=== PATIENT | female | born 2000 | race Two or more races ===

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

== ENCOUNTER 2019-06-17 19:10 | Emergency (ER) | payer OTHER, MEDICAID ==
[2019-06-17 23:02] VITALS: BP 108/63
== END 2019-06-17 23:02 | disposition home or self-care (01) ==
LOC: ED 19:10
DX: M25.551 Pain in right hip (principal); M79.651 Pain in right thigh; J45.909 Unspecified asthma, uncomplicated; G80.9 Cerebral palsy, unspecified; Z98.2 Presence of cerebrospinal fluid drainage device